=== PATIENT | female | born 1965 ===

== ENCOUNTER 2018-02-20 20:49 | Observation (INO) | payer MEDICARE, MEDICAID ==
--- NOTE | 2018-02-20 21:59 | ED PDOC ---
Arrival/HPI - General Chief Complaint: Abdominal Pain Time Seen by Provider: 02/20/18 21:05 Historian: Patient - History of Present Illness Narrative History of Present Illness (Text): 02/20/18 21:55 52 year old female, whose past medical history includes hypertension, diabetes, and CVA, presents to the emergency department complaining of onset of abdominal discomfort associated with nausea and vomiting that began earlier this evening. Patient states the discomfort radiates to the back. Patient denies any fever, chills, chest pain, shortness of breath, diarrhea, urinary symptoms, neck pain, headache, dizziness, or any other complaints. Time/Duration: 4-6 hours Symptom Onset: Sudden Symptom Course: Unchanged Activities at Onset: Light Context: Home Past Medical History - Provider Review Nursing Documentation Reviewed: Yes - Infectious Disease Hx of Infectious Diseases: None - Tetanus Immunization Tetanus Immunization: Unknown - Cardiac Hx Cardiac Disorders: Yes Hx Hypertension: Yes - Pulmonary Hx Respiratory Disorders: No - Neurological Hx Neurological Disorder: Yes HX Cerebrovascular Accident: Yes (x 4) Hx Transient Ischemic Attacks (TIA): Yes - HEENT Hx HEENT Disorder: No - Renal Hx Renal Disorder: No - Endocrine/Metabolic Hx Endocrine Disorders: Yes Hx Diabetes Mellitus Type 2: Yes (niddm) - Hematological/Oncological Hx Blood Disorders: No - Integumentary Hx Dermatological Disorder: No - Musculoskeletal/Rheumatological Hx Musculoskeletal Disorders: Yes Hx Arthritis: Yes - Gastrointestinal Hx Gastrointestinal Disorders: No - Genitourinary/Gynecological Hx Genitourinary Disorders: Yes Hx Incontinence: Yes (slight) - Psychiatric Hx Psychophysiologic Disorder: No Hx Substance Use: No - Surgical History Hx Section: Yes Hx Musculoskeletal Surgery: Yes (Right knee miniscal tear) Other/Comment: corn removed from right foot 2000 - Anesthesia Hx Anesthesia: Yes Hx Anesthesia Reactions: No Hx Malignant Hyperthermia: No - Suicidal Assessment Feels Threatened In Home Enviroment: No Family/Social History - Physician Review Nursing Documentation Reviewed: Yes Family/Social History: No Known Family HX Smoking Status: Light Smoker < 10 Cigarettes Daily Hx Alcohol Use: No Hx Substance Use: No Allergies/Home Meds Allergies/Adverse Reactions: Allergies Penicillins Allergy (Verified 02/20/18 21:41) ANAPHYLAXIS syncope Home Medications: Home Meds Medication Instructions Recorded Confirmed Enalapril [Vasotec] 10 mg PO BID 12/21/13 10/16/16 GlipiZIDE SR [Glucotrol XL] 2.5 mg PO DAILY 12/21/13 10/16/16 Atorvastatin [Lipitor] 0 mg PO DAILY 10/16/16 10/16/16 Carvedilol [Coreg] 1 tab PO BID 10/16/16 10/16/16 MetFORMIN [glucoPHAGE] 1,000 mg PO BID 10/16/16 10/16/16 traMADol [Ultram] 50 mg PO TID PRN 10/16/16 10/16/16 Review of Systems - Physician Review All systems were reviewed & negative as marked: Yes - Review of Systems Constitutional: absent: Fevers, Other (Chills) Respiratory: absent: SOB Cardiovascular: absent: Chest Pain Gastrointestinal: Abdominal Pain, Nausea, Vomiting. absent: Diarrhea Genitourinary Female: absent: Dysuria, Frequency, Hematuria Musculoskeletal: Back Pain. absent: Neck Pain Neurological: absent: Headache, Dizziness Physical Exam Vital Signs Reviewed: Yes Vital Signs Pulse Resp BP Pulse Ox 02/21/18 02:51 85 18 166/86 H 95 Appearance: Positive for: Well-Appearing, Non-Toxic, Comfortable Pain Distress: None Mental Status: Positive for: Alert and Oriented X 3 - Systems Exam Head: Present: Atraumatic, Normocephalic Pupils: Present: PERRL Extroacular Muscles: Present: EOMI Conjunctiva: Present: Normal Mouth: Present: Moist Mucous Membranes Neck: Present: Normal Range of Motion Respiratory/Chest: Present: Clear to Auscultation, Good Air Exchange. No: Respiratory Distress, Accessory Muscle Use Cardiovascular: Present: Regular Rate and Rhythm, Normal S1, S2. No: Murmurs Abdomen: Present: Tenderness (Palpable tenderness to the right upper abdomen), Normal Bowel Sounds. No: Distention, Peritoneal Signs Back: Present: Normal Inspection. No: CVA Tenderness Upper Extremity: Present: Normal Inspection. No: Cyanosis, Edema Lower Extremity: Present: Normal Inspection. No: Edema Neurological: Present: GCS=15, CN II-XII Intact, Speech Normal Skin: Present: Warm, Dry, Normal Color. No: Rashes Psychiatric: Present: Alert, Oriented x 3, Normal Insight, Normal Concentration Medical Decision Making ED Course and Treatment: 02/20/18 22:02 Impression: 52 year old female presents complaining of onset of abdominal discomfort radiating to the back associated with nausea and vomiting that began earlier this evening. Plan: -- Labs -- Pepcid, IV Fluids, Zofran Inj -- Urinalysis -- Abdomen Complete US -- CT Abdomen and Pelvis w/ IV Contrast -- Reassess and disposition Progress Notes: EXAM: US Abdomen Complete 02/21/2018 12:10 AM IMPRESSION: Cholelithiasis. No acute cholecystitis. Fatty liver. EXAM: CT Abdomen and Pelvis With Intravenous Contrast Dictated and Authenticated by: Charla Cotton MD 02/21/2018 1:57 AM IMPRESSION: Moderate right hydroureteronephrosis secondary to 4 mm stone in the proximal ureter. Cholelithiasis. 02/21/18 03:[address] Doherty who is aware and agrees with the plan. Accepts patient into his service and requests Dr. Mcwilliams and Dr. Alex under consults. - Lab Interpretations Lab Results: 02/20/18 22:20 02/20/18 22:20 Lab Results 02/20/18 22:20: WBC 15.0 H D, RBC 4.54, Hgb 12.8, Hct 38.4, MCV 84.6, MCH 28.2, MCHC 33.3, RDW 13.3, Plt Count 424, MPV 11.3 H 02/20/18 22:20: Sodium 145, Potassium 4.4, Chloride 105, Carbon Dioxide 24, Anion Gap 21 H, BUN 17, Creatinine 1.0, Est GFR ( Amer) > 60, Est GFR ( Non-Af Amer) 58, Random Glucose 238 H, Calcium 9.4, Total Bilirubin 0.2, AST 19 , ALT 35, Alkaline Phosphatase 90, Total Protein 7.2, Albumin 4.2, Globulin 3.0 , Albumin/Globulin Ratio 1.4, Lipase 54 I have reviewed the lab results: Yes - RAD Interpretation Radiology Orders: 02/20/18 22:33 ABDOMEN COMPLETE [US] Stat 02/21/18 00:23 ABD & PELVIS IV CONTRAST ONLY [CT] Stat - Medication Orders Current Medication Orders: Sodium Chloride (Sodium Chloride 0.9%) 1,000 mls @ 100 mls/hr IV .Q10H BROCK Last Admin: 02/20/18 22:14 Dose: 100 mls/hr eMAR Start Stop Document 02/20/18 22:14 SS (Rec: 02/20/18 22:14 SS [id number]) Intravenous Solution Start Date 02/20/18 Start Time 22:14 Aztreonam (Azactam 1 Gm) 100 mls @ 100 mls/hr IVPB STAT STA PRN Reason: Protocol Stop: 02/21/18 04:12 Discontinued Medications Famotidine (Pepcid) 20 mg IVP STAT STA Stop: 02/20/18 21:50 Last Admin: 02/20/18 22:14 Dose: 20 mg IVP Administration Document 02/20/18 22:14 SS (Rec: 02/20/18 22:14 SS [id number]) Charges for Administration # of IVP Administrations 1 Morphine Sulfate (Morphine) 4 mg IVP STAT STA Stop: 02/21/18 00:24 Last Admin: 02/21/18 00:52 Dose: 4 mg MAR Pain Assessment Document 02/21/18 00:52 (Rec: 02/21/18 00:53 RG [id number]) Pain Reassessment Is this a pain reassessment? Yes Presence of Pain Presence of Pain Yes Pain Scale Used Pain Scale Used Numeric Location Left, Right or Bilateral Right Upper or Lower Lower Pain Location Body Site Back Description Description Intermittent Intensity of Pain at present 6 Pain Behavior Irritability IVP Administration Document 02/21/18 00:52 RG (Rec: 02/21/18 00:53 RG [id number]) Charges for Administration # of IVP Administrations 1 Ondansetron HCl (Zofran Inj) 4 mg IVP ONCE ONE Stop: 02/20/18 21:50 Last Admin: 02/20/18 22:14 Dose: 4 mg IVP Administration Document 02/20/18 22:14 SS (Rec: 02/20/18 22:14 SS [id number]) Charges for Administration # of IVP Administrations 1 - Scribe Statement The provider has reviewed the documentation as recorded by the Serene Cervantes Provider Scribe Attestation: All medical record entries made by the Scribe were at my direction and personally dictated by me. I have reviewed the chart and agree that the record accurately reflects my personal performance of the history, physical exam, medical decision making, and the department course for this patient. I have also personally directed, reviewed, and agree with the discharge instructions and disposition. Disposition/Present on Arrival - Present on Arrival Any Indicators Present on Arrival: No History of DVT/PE: No History of Uncontrolled Diabetes: No Urinary Catheter: No History of Decub. Ulcer: No History Surgical Site Infection Following: None - Disposition Have Diagnosis and Disposition been Completed?: Yes Diagnosis: Renal colic Disposition: HOSPITALIZED Disposition Time: 03:11 Patient Problems: Current Active Problems Problem Status Onset Renal colic Acute Condition: STABLE
[2018-02-20] MEDS ORDERED: Sodium Chloride 0.9% 1,000 ML IV SCH (22:00)
[2018-02-20 22:03] VITALS: BMI 29.4
[2018-02-20 22:38] LABS: HEMOGLOBIN 12.8 g/dL (12.0-16.0); MEAN CELL VOLUME 84.6 fl (80.0-105.0); MEAN CORPUSCULAR HEMOGLOBIN 28.2 pg (25.0-35.0); MEAN CORPUSCULAR HGB CONC 33.3 g/dl (31.0-37.0); MEAN PLATELET VOLUME 11.3 fl (7.0-11.0); RBC 4.54 10^6/uL (3.5-6.1); RED CELL DISTRIBUTION WIDTH 13.3 % (11.5-14.5)
[2018-02-20 22:46] LABS: ALB/GLOB RATIO 1.4 (1.1-1.8); ALBUMIN 4.2 g/dL (3.0-4.8); ALT/SGPT 35 U/L (7-56); AST/SGOT 19 U/L (14-36); BLOOD UREA NITROGEN 17 mg/dL (7-21); CALCIUM 9.4 mg/dL (8.4-10.5); GFR AFRICAN-AMERICAN > 60; GFR NON-AFRICAN AMERICAN 58; LIPASE 54 U/L (23-300)
--- NOTE | 2018-02-21 00:10 | US ---
EXAM: US Abdomen Complete CLINICAL HISTORY: 52 years old, female; Pain; Abdominal pain; Other: Ruq TECHNIQUE: Real-time ultrasound of the abdomen (complete) with image documentation. COMPARISON: No relevant prior studies available. FINDINGS: Liver: The liver is increased in echogenicity and coarse echotexture suggesting fatty infiltration measuring 18.8 cm. No mass. No intrahepatic bile duct dilation. Gallbladder: Multiple calcified gallstones are present. Gallbladder wall is normal measuring 2 mm. Negative Mathur's sign. No pericholecystic fluid. Common bile duct: Unremarkable as visualized measuring 5 mm. No stones. No dilation. Pancreas: The pancreas is poorly-visualized due to overlying bowel gas. Kidneys: Unremarkable. The right kidney measures 12.4 cm and the left kidney measures 11.2 cm. No stones. No solid mass. No hydronephrosis. Spleen: Unremarkable measuring 9.4 cm. No splenomegaly. Aorta: Unremarkable. No aneurysm. Inferior vena cava: Unremarkable. Hepatopedal flow in the portal vein. IMPRESSION: Cholelithiasis. No acute cholecystitis. Fatty liver.
[2018-02-21] MEDS ORDERED: Morphine 4 mg/ml ISec IVP STA ×2 (00:23→05:08)
[2018-02-21] MEDS ORDERED: Iohexol 350 MG/100 ML VIAL ONE (00:35)
--- NOTE | 2018-02-21 01:57 | CT ---
EXAM: CT Abdomen and Pelvis With Intravenous Contrast CLINICAL HISTORY: 52 years old, female; Pain; Abdominal pain TECHNIQUE: Axial computed tomography images of the abdomen and pelvis with intravenous contrast. All CT scans at this facility use one or more dose reduction techniques, viz.: automated exposure control; ma/kV adjustment per patient size (including targeted exams where dose is matched to indication; i.e. head); or iterative reconstruction technique. Coronal and sagittal reformatted images were created and reviewed. CONTRAST: 96 mL of OMNI 350 administered intravenously. COMPARISON: US - ABDOMEN COMPLETE 2018-02-20 23:06 FINDINGS: Lung bases: Unremarkable. No mass. No consolidation. ABDOMEN: Liver: Unremarkable. No mass. Gallbladder and bile ducts: Multiple calcified gallstones are present. No ductal dilation. Pancreas: Unremarkable. No mass. No ductal dilation. Spleen: Unremarkable. No splenomegaly. Adrenals: Unremarkable. No mass. Kidneys and ureters: There is moderate right hydronephrosis and hydroureter secondary to a 4 mm stone in the proximal ureter. Right perinephric inflammatory stranding and fluid. There are multiple bilateral renal collecting system calcifications. Stomach and bowel: Unremarkable. No obstruction. No mucosal thickening. PELVIS: Appendix: A normal appendix is identified. Bladder: Unremarkable. No mass. Reproductive: Unremarkable as visualized. ABDOMEN and PELVIS: Intraperitoneal space: Unremarkable. No free air. No significant fluid collection. Bones/joints: No acute fracture. No dislocation. Soft tissues: Unremarkable. Vasculature: The vasculature demonstrates diffuse moderate atherosclerotic calcification. No abdominal aortic aneurysm. Lymph nodes: Unremarkable. No enlarged lymph nodes. IMPRESSION: Moderate right hydroureteronephrosis secondary to 4 mm stone in the proximal ureter. Cholelithiasis.
[2018-02-21] MEDS ORDERED: Aztreonam 1 Gm in NS 100mL 100 ML IVPB STA (03:13)
[2018-02-21 04:31] LABS: URINE BILIRUBIN NEGATIVE (NEGATIVE); URINE BLOOD MODERATE (NEGATIVE); URINE GLUCOSE (UA) 250 mg/dL (NEGATIVE); URINE LEUKOCYTE ESTERASE NEGATIVE Leu/uL (NEGATIVE); URINE PROTEIN 30 mg/dL (<30 mg/dL); URINE UROBILINOGEN 0.2 E.U./dL (<1 E.U./dL)
[2018-02-21 04:33] LABS: URINE APPEARANCE CLEAR (CLEAR)
[2018-02-21 04:34] LABS: URINE COLOR YELLOW (YELLOW)
[2018-02-21 04:53] LABS: URINE WBC 0 - 2 /hpf (0-6)
[2018-02-21] MEDS ORDERED: Sodium Chloride 0.9% 1,000 ML IV STA (05:11)
[2018-02-21] MEDS ORDERED: Morphine 30 mg SR Tab PO PRN (07:43)
--- NOTE | 2018-02-21 07:44 | CP.PCM.HP ---
<Rosalinda Strauss - Last Filed: 02/21/18 11:16> History of Present Illness - History of Present Illness History of Present Illness: H&P for Martine Hagen PGY2 This is a 52yo female with past medical history HTN, IDDM, and TIA who came to ED for diffuse abdominal pain that radiates to her back x 2 days. She states that it began all of a sudden, the pain is constant and she has never had this before. She has some nausea, but denies chest pain, shortness of breath, vomiting/diarrhea, fever/chills, numbness/tingling, dysuria or hematuria. In the ED, patient was found to have leukocytosis and a 4mm R kidney stone with hydronephrosis on CT A/P. Past medical history: HTN, DM, TIA Past surgical history: Home meds: Reviewed Allergies: Penicillin Social history: Smokes 1/2ppd, denies EtOH or drug use. Uses cane to ambulate Present on Admission - Present on Admission Any Indicators Present on Admission: No Review of Systems - Review of Systems All systems: reviewed and no additional remarkable complaints except Review of Systems: 12 point ROS reviewed as per HPI Past Patient History - Infectious Disease Hx of Infectious Diseases: None - Tetanus Immunizations Tetanus Immunization: Unknown - Past Medical History & Family History Past Medical History?: Yes - Past Social History Smoking Status: Light Smoker < 10 Cigarettes Daily - CARDIAC Hx Cardiac Disorders: Yes Hx Hypertension: Yes - PULMONARY Hx Respiratory Disorders: No - NEUROLOGICAL Hx Neurological Disorder: Yes HX Cerebrovascular Accident: Yes (x 4) Hx Transient Ischemic Attacks (TIA): Yes - HEENT Hx HEENT Problems: No - RENAL Hx Chronic Kidney Disease: No - ENDOCRINE/METABOLIC Hx Endocrine Disorders: Yes Hx Diabetes Mellitus Type 2: Yes (niddm) - HEMATOLOGICAL/ONCOLOGICAL Hx Blood Disorders: No - INTEGUMENTARY Hx Dermatological Problems: No - MUSCULOSKELETAL/RHEUMATOLOGICAL Hx Musculoskeletal Disorders: Yes Hx Arthritis: Yes - GASTROINTESTINAL Hx Gastrointestinal Disorders: No - GENITOURINARY/GYNECOLOGICAL Hx Genitourinary Disorders: Yes Hx Incontinence: Yes (slight) - PSYCHIATRIC Hx Psychophysiologic Disorder: No Hx Substance Use: No - SURGICAL HISTORY Hx Section: Yes Hx Musculoskeletal Surgery: Yes (Right knee miniscal tear) Other/Comment: corn removed from right foot 2000 - ANESTHESIA Hx Anesthesia: Yes Hx Anesthesia Reactions: No Hx Malignant Hyperthermia: No Meds Allergies/Adverse Reactions: Allergies Allergy/AdvReac Type Severity Reaction Status Date / Time Penicillins Allergy ANAPHYLAXIS Verified 02/20/18 21:41 Physical Exam - Constitutional Appears: No Acute Distress - Head Exam Head Exam: ATRAUMATIC, NORMAL INSPECTION, NORMOCEPHALIC - Eye Exam Eye Exam: Normal appearance, PERRL Pupil Exam: NORMAL ACCOMODATION, PERRL - ENT Exam ENT Exam: Mucous Membranes Moist - Respiratory Exam Respiratory Exam: Clear to Auscultation Bilateral, NORMAL BREATHING PATTERN. absent: Rales, Rhonchi, Wheezes - Cardiovascular Exam Cardiovascular Exam: REGULAR RHYTHM, +S1, +S2. absent: Gallop, Rubs, Systolic Murmur - GI/Abdominal Exam GI & Abdominal Exam: Normal Bowel Sounds, Soft, Tenderness (mild diffuse ). absent: Mass, Rebound, Rigid - Extremities Exam Extremities exam: Positive for: normal inspection. Negative for: calf tenderness, pedal edema - Back Exam Back exam: CVA tenderness (R) - Neurological Exam Neurological exam: Alert, CN II-XII Intact, Oriented x3 - Psychiatric Exam Psychiatric exam: Normal Affect, Normal Mood - Skin Skin Exam: Dry, Warm Results - Vital Signs Recent Vital Signs: Last Vital Signs Temp 98.5 F 02/21/18 04:50 Pulse 88 02/21/18 07:24 Resp 18 02/21/18 05:11 BP 170/78 H 02/21/18 07:24 Pulse Ox 98 02/21/18 05:11 - Labs Result Diagrams: 02/21/18 07:45 02/20/18 22:20 Labs: Laboratory Results - last 24 hr 02/21/18 05:10 POC Glucose (mg/dL) 209 H Assessment & Plan - Assessment and Plan (Free Text) Assessment: This is a 52yo female with past medical history HTN, IDDM, and TIA who is admitted for 1. Nephrolithiasis with R hydronephrosis 2. HTN 3. IDDM 4. TIA 5. Tobacco abuse Plan: Patient is on IV fluids, Flomax and pain control. U/A was negative for UTI. ID is on consult. Patient has mild leukocytosis and is afebrile. Imaging reviewed. Urology is on consult. Patient may need stent due to hydronephrosis. She will be on Gipizide and insulin for her diabetes and will continue to monitor her blood glucose. She will continue her home medications (Coreg and Enalipril) for hypertension. Her BP was noted to be elevated, but can be secondary to pain and IV fluids. She will continue ASA for history of TIA. Patient was counseled on smoking cessation and discussed the risk of tobacco use and stroke. Patient will be on GI and DVT prophylaxis. Discharge plan will be based on urology recommendation and patient's pain control. Urine will be strained. Case seen, discussed and reviewed with Dr. Doherty. Martine Strauss PGY2 - Date & Time Date: 02/21/18 Time: 08:00 <Glen Doherty S - Last Filed: 02/21/18 13:04> Results - Vital Signs Recent Vital Signs: Last Vital Signs Temp 98.2 F 02/21/18 06:00 Pulse 88 02/21/18 10:41 Resp 16 02/21/18 10:41 BP 170/78 H 02/21/18 10:41 Pulse Ox 96 02/21/18 06:00 - Labs Result Diagrams: 02/21/18 07:45 02/20/18 22:20 Labs: Laboratory Results - last 24 hr 02/21/18 02/21/18 02/21/18 05:10 06:49 07:45 WBC 14.2 H RBC 4.63 Hgb 13.0 Hct 38.6 MCV 83.4 MCH 28.1 MCHC 33.7 RDW 13.2 Plt Count 383 MPV 10.7 POC Glucose (mg/dL) 209 H 211 H 02/21/18 11:07 WBC RBC Hgb Hct MCV MCH MCHC RDW Plt Count MPV POC Glucose (mg/dL) 219 H Assessment & Plan - Assessment and Plan (Free Text) Plan: Pt seen and examined. Agree with the note of the medical unit secretary. Labs and medications have been reviewed. Pt with R nephrotlithiasis and hydro. She is on Flomax. Pain is controlled. She does have a hx of kidney stones. May need a stent to be placed.
[2018-02-21 08:06] LABS: MEAN CELL VOLUME 83.4 fl (80.0-105.0); MEAN CORPUSCULAR HEMOGLOBIN 28.1 pg (25.0-35.0); MEAN CORPUSCULAR HGB CONC 33.7 g/dl (31.0-37.0); MEAN PLATELET VOLUME 10.7 fl (7.0-11.0); RBC 4.63 10^6/uL (3.5-6.1); RED CELL DISTRIBUTION WIDTH 13.2 % (11.5-14.5); WHITE BLOOD COUNT 14.2 10^3/ul (4.5-11.0)
[2018-02-21] MEDS: GlipiZIDE 2.5 mg SR Tab PO SCH (10:30)
[2018-02-21] MEDS ORDERED: Morphine 4 mg/ml ISec IVP PRN (10:32)
[2018-02-21] MEDS: Insulin Reg-LOW-Coverage SC SCH ×2 (11:30→17:58)
[2018-02-21] MEDS: Aztreonam 1 Gm in NS 100mL 100 ML IVPB SCH ×2 (14:00→22:58)
--- NOTE | 2018-02-21 14:53 | CP.PCM.CON ---
History of Present Illness - History of Present Illness History of Present Illness: 52 year old female with PMH of HTN, DM, history of TIA, S/P came in to [facility] complaining of abdominal pain associated with right sided flank pain which is intermittent for the past 2 days, associated with nausea. She denies vomiting, no diarrhea, no dysuria, no hematuria, no dysphagia, no fever or chills, no headache or dizziness, no sore throat, no cough or colds. In the ED, CT scan of the abdomen and pelvis was done which showed right sided hydronephrosis with obstructing stone. Infectious diseases consult is requested to further evaluate and manage. Review of Systems - Review of Systems All systems: reviewed and no additional remarkable complaints except (as per HPI ) Past Patient History - Infectious Disease Hx of Infectious Diseases: None - Tetanus Immunizations Tetanus Immunization: Unknown - Past Medical History & Family History Past Medical History?: Yes - Past Social History Smoking Status: Light Smoker < 10 Cigarettes Daily - CARDIAC Hx Cardiac Disorders: Yes Hx Hypertension: Yes - PULMONARY Hx Respiratory Disorders: No - NEUROLOGICAL Hx Neurological Disorder: Yes HX Cerebrovascular Accident: Yes (x 4) Hx Transient Ischemic Attacks (TIA): Yes - HEENT Hx HEENT Problems: No - RENAL Hx Chronic Kidney Disease: No - ENDOCRINE/METABOLIC Hx Endocrine Disorders: Yes Hx Diabetes Mellitus Type 2: Yes (niddm) - HEMATOLOGICAL/ONCOLOGICAL Hx Blood Disorders: No - INTEGUMENTARY Hx Dermatological Problems: No - MUSCULOSKELETAL/RHEUMATOLOGICAL Hx Musculoskeletal Disorders: Yes Hx Arthritis: Yes - GASTROINTESTINAL Hx Gastrointestinal Disorders: No - GENITOURINARY/GYNECOLOGICAL Hx Genitourinary Disorders: Yes Hx Incontinence: Yes (slight) - PSYCHIATRIC Hx Psychophysiologic Disorder: No Hx Substance Use: No - SURGICAL HISTORY Hx Section: Yes Hx Musculoskeletal Surgery: Yes (Right knee miniscal tear) Other/Comment: corn removed from right foot 2000 - ANESTHESIA Hx Anesthesia: Yes Hx Anesthesia Reactions: No Hx Malignant Hyperthermia: No Meds Allergies/Adverse Reactions: Allergies Allergy/AdvReac Type Severity Reaction Status Date / Time Penicillins Allergy ANAPHYLAXIS Verified 02/20/18 21:41 - Medications Medications: Current Medications Aspirin (Ecotrin) 81 mg PO DAILY [facility] Last Admin: 02/21/18 10:30 Dose: 81 mg Atorvastatin Calcium (Lipitor) 10 mg PO DAILY [facility] Last Admin: 02/21/18 10:30 Dose: 10 mg Carvedilol (Coreg) 6.25 mg PO BID [facility] Last Admin: 02/21/18 10:30 Dose: Not Given Glipizide (Glucotrol Xl) 2.5 mg PO DAILY [facility] Last Admin: 02/21/18 10:30 Dose: 2.5 mg Sodium Chloride (Sodium Chloride 0.9%) 1,000 mls @ 100 mls/hr IV .Q10H [facility] Last Admin: 02/20/18 22:14 Dose: 100 mls/hr Sodium Chloride (Sodium Chloride 0.9%) 1,000 mls @ 100 mls/hr IV .Q10H STA Stop: 02/21/18 15:10 Aztreonam (Azactam 1 Gm) 100 mls @ 100 mls/hr IVPB Q8 [facility] PRN Reason: Protocol Stop: 02/28/18 14:01 Insulin Human Lispro (Humalog) 10 units SC ACBD [facility] Insulin Human Regular (Humulin R Low) 0 units SC ACHS [facility] PRN Reason: Protocol Lisinopril (Zestril) 20 mg PO DAILY [facility] Last Admin: 02/21/18 10:31 Dose: Not Given Morphine Sulfate (Morphine) 4 mg IVP Q4H PRN PRN Reason: Pain, moderate (4-7) Ondansetron HCl (Zofran Inj) 4 mg IVP Q6H PRN PRN Reason: Nausea/Vomiting Tamsulosin HCl (Flomax) 0.4 mg PO DAILY [facility] Last Admin: 02/21/18 10:30 Dose: 0.4 mg Physical Exam - Constitutional Appears: Non-toxic, Chronically Ill - Head Exam Head Exam: NORMAL INSPECTION - ENT Exam ENT Exam: Mucous Membranes Moist - Neck Exam Neck exam: Negative for: Lymphadenopathy, Meningismus - Respiratory Exam Respiratory Exam: Decreased Breath Sounds - Cardiovascular Exam Cardiovascular Exam: +S1, +S2 - GI/Abdominal Exam GI & Abdominal Exam: Soft. absent: Tenderness - Back Exam Back exam: CVA tenderness (R) Results - Vital Signs Recent Vital Signs: Last Vital Signs Temp 98.2 F 02/21/18 06:00 Pulse 88 02/21/18 10:41 Resp 16 02/21/18 10:41 BP 170/78 H 02/21/18 10:41 Pulse Ox 96 02/21/18 06:00 - Labs Result Diagrams: 02/21/18 07:45 05/17/18 22:20 Labs: Laboratory Results - last 24 hr 02/21/18 02/21/18 02/21/18 05:10 06:49 07:45 WBC 14.2 H RBC 4.63 Hgb 13.0 Hct 38.6 MCV 83.4 MCH 28.1 MCHC 33.7 RDW 13.2 Plt Count 383 MPV 10.7 POC Glucose (mg/dL) 209 H 211 H 02/21/18 11:07 WBC RBC Hgb Hct MCV MCH MCHC RDW Plt Count MPV POC Glucose (mg/dL) 219 H Assessment & Plan - Assessment and Plan (Free Text) Plan: Assessment systemic inflammatory response syndrome due to right sided obstructive uropathy R/O UTI HTN DM history of TIA S/P Plan Started the patient on Azactam pending blood and urine cx; follow up Urology evaluation and plans will check HIV test will monitor clinically
[2018-02-21] MEDS ORDERED: Iohexol 240 (50 ml) ONE (15:19)
--- NOTE | 2018-02-21 15:32 | RAD ---
HISTORY: preop COMPARISON: 04/12/2014 FINDINGS: LUNGS: No active pulmonary disease. PLEURA: No significant pleural effusion identified, no pneumothorax apparent. CARDIOVASCULAR: Normal. OSSEOUS STRUCTURES: No significant abnormalities. VISUALIZED UPPER ABDOMEN: Normal. OTHER FINDINGS: None. IMPRESSION: No active disease.
[2018-02-21] MEDS ORDERED: Midazolam 2 MG/2 ML VIAL ONE (15:34)
[2018-02-21] MEDS ORDERED: HYDROmorphone 0.5 mg/0.5 ml ISec IVP PRN (16:12)
[2018-02-21] MEDS ORDERED: Lactated Ringer's 1,000 ML IV SCH (16:15)
--- NOTE | 2018-02-21 16:55 | CARD ---
APPROVED REPORT EKG Measurement Heart [id number] <Conclusion> Normal sinus rhythm Normal ECG
[2018-02-21] MEDS: Insulin Lispro 1 UNITS/0.01 ML SC SCH (17:59)
[2018-02-22] MEDS: Aztreonam 1 Gm in NS 100mL 100 ML IVPB SCH (06:21)
[2018-02-22 07:58] VITALS: BP 153/78; PULSE 75; RESP 19; TEMP 98.2; O2SAT 99
[2018-02-22] MEDS: GlipiZIDE 2.5 mg SR Tab PO SCH (10:53)
[2018-02-22] MEDS: Insulin Lispro 1 UNITS/0.01 ML SC SCH (10:54)
[2018-02-22] MEDS: Insulin Reg-LOW-Coverage SC SCH (10:56)
--- NOTE | 2018-02-22 11:44 | PN ---
DATE: 02/22/2018 POSTOPERATIVE PROGRESS NOTE SUBJECTIVE: The patient is seen in her room. She is awake, alert, in no acute distress. She is afebrile. PHYSICAL EXAMINATION: VITAL SIGNS: Temp of 98.2, pulse 75, BP 153/78, respirations are 20. ABDOMEN: Soft, nontender and nondistended. There is no hepatosplenomegaly or CVA tenderness. IMPRESSION AND PLAN: The patient is status post ureteral stent placement for a ureteral calculus. Urologically, the patient appears stable for discharge. I would discharge her home on analgesics and antibiotics. She should contact my office next week for further plans regarding stent and stone removal. Saad Alex MD
--- NOTE | 2018-02-22 12:40 | PN ---
DATE: 02/22/2018 SUBJECTIVE: The patient is in bed in no acute distress, nontoxic. PHYSICAL EXAMINATION: VITAL SIGNS: Temperature is 98, blood pressure is 130/78, respiratory rate of 18. HEENT: Unremarkable. NECK: Supple. LUNGS: Have decreased breath sounds. HEART: Normal S1, S2. ABDOMEN: Soft, nontender. LABORATORY DATA: Reveals a white count of 14,200, hemoglobin of 13, platelets of 383. Chemistries reveals a BUN of 17, creatinine of 1. Urinalysis is noted. Blood cultures are negative. Urine cultures are pending. ASSESSMENT AND PLAN: Surgical note is reviewed. Case discussed with Dr. Doherty at length. Ken Mcwilliams MD
--- NOTE | 2018-02-22 20:37 | DS ---
HISTORY: This is a 52-year-old female who had came into the hospital because of renal colic secondary to kidney stones. The patient was seen by Dr. Alex from Urology and had a stent that was placed in the right ureter and also a cystoscopy was done. The patient says she feels well. She is ambulating. She has no complaint of any chest pain or shortness of breath. No headaches. Pain is controlled. PHYSICAL EXAMINATION: VITAL SIGNS: Temperature is 98.2, pulse of 75, blood pressure 153/78, respirations 19. GENERAL: The patient is lying in bed, flat, comfortable. HEENT: No oral lesion. Anicteric sclerae. Moist mucosa. NECK: No JVD, adenopathy, or thyromegaly. CARDIOVASCULAR: S1 and S2, regular. No murmurs, rubs, or gallops. LUNGS: Clear to auscultation bilaterally. No wheeze, rales, or rhonchi. ABDOMEN: Bowel sounds are positive, soft, nontender and nondistended. EXTREMITIES: no cyanosis, clubbing or edema. ASSESSMENT 1. Nephrolithiasis with right-sided kidney stone, status post stent. 2. Right-sided hydronephrosis secondary to nephrolithiasis. 3. Hypertension. 4. Diabetes type 2. 5. History of transient ischemic attack. 6. Smoking. PLAN: The patient is currently comfortable. She does not require antibiotics. I did speak to Dr. Mcwilliams regarding the case. She has been cleared by Dr. Alex from Urology to be discharged. She is going to continue aspirin. She is on Flomax. The patient is on Lipitor for dyslipidemia. She is on IV fluids. I will discontinue the patient's IV fluids. She was advised to be on low-salt diet and increasing fluid intake. She is going to follow with Dr. Alex for removal of her stent. I did advise her the importance of followup. Glen Doherty MD
--- NOTE | 2018-02-24 08:11 | OP ---
PROCEDURE DATE: 02/21/2018 PREOPERATIVE DIAGNOSIS: Obstructing right ureteral calculus. POSTOPERATIVE DIAGNOSIS: Obstructing right ureteral calculus. PROCEDURE: Cystoscopy, right retrograde pyelogram, insertion of a right ureteral stent. ATTENDING SURGEON: Saad Alex MD TYPE OF ANESTHESIA: Sedation. SPECIMENS There were none. DRAINS: 6 x 26 right ureteral stent. COMPLICATIONS: There were none. OPERATIVE FINDINGS: After informed consent was obtained, the patient was taken to the operative room and placed on the operating table. Anesthesia was administered. The patient was then placed in the dorsal lithotomy position and prepped and draped in the usual sterile fashion. A 22-Malay cystoscope was then advanced into the patient's bladder under direct vision and a full survey inspection was performed. There were no stones, papillary tumors or foreign bodies of the bladder noted. Both ureteral orifices were visualized and appeared within normal limits. On fluoroscopy, no obvious calculus was noted. At this point, an open-ended ureteral catheter was introduced through the cystoscope and guided into the right ureteral orifice. A right retrograde pyelogram was then performed by filling contrast into the right ureter during real-time fluoroscopy. There appeared to be a small mobile filling defect in the right renal pelvis or upper ureter. There was some dilatation above this point with mild right hydronephrosis. At this point, a sensor wire was obtained. The sensor wire was passed through the open-ended ureteral catheter and advanced up the ureter under fluoroscopic guidance. The wire was easily advanced into the kidney and coiled in the upper collecting system. At this point, a 6 x 26 ureteral stent was obtained. It was passed over the wire through the cystoscope and into the right ureter. The stent was advanced proximally under direct and fluoroscopic guidance until it was at the appropriate position. When the stent was in place, guidewire was removed. A coil was seen in renal pelvis on fluoroscopy. A coil was seen in bladder on cystoscopy. At this point, the procedure was completed. The bladder was drained and the cystoscope was removed. The patient tolerated the procedure well. She was returned to the supine position and taken to the recovery room awake and in stable condition. The patient has diabetes with an obstructive stone, which is why the stent was passed. Plan would be to continue intravenous antibiotics. See how the patient is doing tomorrow and if her pain is controlled with no fever, she can be discharged on antibiotics from a urologic standpoint. The patient has multiple medical comorbidities. She will need to follow up in my office as an outpatient and plan on further treatment of her stone. Saad Alex MD
--- NOTE | 2018-02-24 12:27 | RAD ---
PROCEDURE: Fluoroscopy up to 1 hour HISTORY: RETROGRADE PYELOGRAM / STENT INSERTION (RIGHT) COMPARISON: TECHNIQUE: Fluoroscopy was provided in the operating room. 30.2 seconds of fluoro time. 13.57 mGy cumulative dose. 10 images were submitted FINDINGS: The study shows placement of a right ureteral stent IMPRESSION: As above
== END 2018-02-22 14:06 | disposition home or self-care (01) ==
LOC: ED 20:49 → ERH 02-21 03:10 → 5RSO 02-21 06:38
PROVIDERS: ADMIT Internal Medicine Nephrology; ATTEND Internal Medicine Nephrology
DX: N13.2 Hydronephrosis with renal and ureteral calculous obstruction (principal); D72.829 Elevated white blood cell count, unspecified; E11.9 Type 2 diabetes mellitus without complications; I10 Essential (primary) hypertension; K76.0 Fatty (change of) liver, not elsewhere classified; K80.20 Calculus of gallbladder without cholecystitis without obstruction; R65.10 Systemic inflammatory response syndrome (SIRS) of non-infectious origin without acute organ dysfunction; Z79.4 Long term (current) use of insulin; Z86.73 Personal history of transient ischemic attack (TIA), and cerebral infarction without residual deficits; F17.210 Nicotine dependence, cigarettes, uncomplicated; Z88.0 Allergy status to penicillin; Z87.892 Personal history of anaphylaxis; B96.20 Unspecified Escherichia coli [E. coli] as the cause of diseases classified elsewhere
CPT/HCPCS: 52332; 71045; 74177; 76700; 80053; 81001; 82948; 83690; 85027; 87040; 87086; 87181; 87389; 93005; 96374; 96375; 96376; 99285; C1758; C1769; C2625; G0378; J2250; J2270; J2405; J3010; J7040; J7120; Q9966; Q9967

== ENCOUNTER 2018-02-23 10:12 | Emergency (ER) | payer MEDICARE, MEDICAID ==
[2018-02-23] MEDS ORDERED: Morphine 4 mg/ml ISec IVP STA (10:47)
[2018-02-23 11:11] VITALS: RESP 18; TEMP 98.2; O2SAT 97
--- NOTE | 2018-02-23 11:26 | ED PDOC ---
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 Alex for chronic nephrolithiasis on 02/21/18 and discharged yesterday, presents to the Emergency department complaining of right sided flank discomfort since today. Patient initially informs improvement and pain free after stent placement however pain soon reappeared today. Patient informs associated nausea and vomiting but denies any difficulty ambulating. Patient denies any fever, chills, diarrhea, chest pain, shortness of breath or any other complaints. Time/Duration: 4-6 hours Symptom Onset: Gradual Symptom Course: Unchanged Quality: Aching Activities at Onset: Light Context: Home Past Medical History - Provider Review Nursing Documentation Reviewed: Yes - Infectious Disease Hx of Infectious Diseases: None - Tetanus Immunization Tetanus Immunization: Unknown - Reproductive Menopause: Yes - Cardiac Hx Cardiac Disorders: Yes Hx Hypertension: Yes - Pulmonary Hx Respiratory Disorders: No - Neurological Hx Neurological Disorder: Yes HX Cerebrovascular Accident: Yes (x 4) Hx Transient Ischemic Attacks (TIA): Yes - HEENT Hx HEENT Disorder: No - Renal Hx Renal Disorder: No - Endocrine/Metabolic Hx Endocrine Disorders: Yes Hx Diabetes Mellitus Type 2: Yes (niddm) - Hematological/Oncological Hx Blood Disorders: No - Integumentary Hx Dermatological Disorder: No - Musculoskeletal/Rheumatological Hx Musculoskeletal Disorders: Yes Hx Arthritis: Yes - Gastrointestinal Hx Gastrointestinal Disorders: No - Genitourinary/Gynecological Hx Genitourinary Disorders: Yes Hx Incontinence: Yes (slight) - Psychiatric Hx Psychophysiologic Disorder: No Hx Substance Use: No - Surgical History Hx Section: Yes Hx Musculoskeletal Surgery: Yes (Right knee miniscal tear) Other/Comment: corn removed from right foot 2000 - Anesthesia Hx Anesthesia: Yes Hx Anesthesia Reactions: No Hx Malignant Hyperthermia: No - Suicidal Assessment Feels Threatened In Home Enviroment: No Family/Social History - Physician Review Nursing Documentation Reviewed: Yes Family/Social History: No Known Family HX Smoking Status: Light Smoker < 10 Cigarettes Daily Hx Alcohol Use: No Hx Substance Use: No Allergies/Home Meds Allergies/Adverse Reactions: Allergies Penicillins Allergy (Verified 02/20/18 21:41) ANAPHYLAXIS syncope Home Medications: Home Meds Medication Instructions Recorded Confirmed Enalapril [Vasotec] 10 mg PO BID 12/21/13 02/21/18 GlipiZIDE SR [Glucotrol XL] 2.5 mg PO DAILY 12/21/13 02/21/18 Atorvastatin [Lipitor] 0 mg PO DAILY 10/16/16 02/21/18 Carvedilol [Coreg] 1 tab PO BID 10/16/16 02/21/18 Review of Systems - Physician Review All systems were reviewed & negative as marked: Yes - Review of Systems Constitutional: Normal. absent: Fevers Eyes: Normal ENT: Normal Respiratory: Normal. absent: SOB Cardiovascular: Normal. absent: Chest Pain Gastrointestinal: Nausea, Vomiting. absent: Diarrhea Genitourinary Female: Normal Musculoskeletal: Back Pain (right flank discomfort) Skin: Normal Neurological: Normal Endocrine: Normal Hemo/Lymphatic: Normal Psychiatric: Normal Physical Exam Vital Signs Reviewed: Yes Vital Signs Temp Pulse Resp BP Pulse Ox 02/23/18 10:13 98.2 F 84 18 161/83 H 97 Temperature: Afebrile Blood Pressure: Hypertensive Pulse: Regular Respiratory Rate: Normal Appearance: Positive for: Well-Appearing, Non-Toxic, Comfortable Pain Distress: None Mental Status: Positive for: Alert and Oriented X 3 - Systems Exam Head: Present: Atraumatic, Normocephalic Pupils: Present: PERRL Extroacular Muscles: Present: EOMI Conjunctiva: Present: Normal Respiratory/Chest: Present: Clear to Auscultation, Good Air Exchange. No: Respiratory Distress, Accessory Muscle Use Cardiovascular: Present: Regular Rate and Rhythm, Normal S1, S2. No: Murmurs Abdomen: No: Tenderness, Distention, Peritoneal Signs Back: Present: CVA Tenderness, Other (right flank tenderness) Upper Extremity: Present: Normal Inspection. No: Cyanosis, Edema Lower Extremity: Present: Normal Inspection. No: Edema Neurological: Present: GCS=15, CN II-XII Intact, Speech Normal Skin: Present: Warm, Dry, Normal Color. No: Rashes Psychiatric: Present: Alert, Oriented x 3, Normal Insight, Normal Concentration Medical Decision Making ED Course and Treatment: 02/23/18 10:45 Impression: 52 year old female presents to the Emergency department for right sided flank discomfort s/p ureteral discomfort. Plan: -- VBG -- CT of Abdomen/Pelvis -- Labs -- EKG -- Chest X-ray -- Morphine -- IV Fluids -- Blood Culture -- Urine Culture -- Urinalysis -- Reassess and disposition Prior Visits: Notes and results from previous visits were reviewed. Patient was last seen in the emergency department on 02/20/18 for right sided abdominal discomfort and was hospitalized for further treatment. Ureteral stent placed on 02/21/[address] Alex. Progress Notes: 02/23/18 12:33 CT of Abdomen/Pelvis reviewed by radiologist, shows: LOWER THORAX: Unremarkable. LIVER: Unremarkable. No gross lesion or ductal dilatation. GALLBLADDER AND BILE DUCTS: Cholelithiasis without CT evidence of acute cholecystitis. PANCREAS: Unremarkable. No gross lesion or ductal dilatation. SPLEEN: Unremarkable. ADRENALS: Unremarkable. No mass. KIDNEYS AND URETERS: Interval improvement in right hydronephrosis and hydroureter. The right kidney is less edematous. Position of the double J stent catheter(s): Satisfactory Small and solitary lower pole calculus nonobstructing less than 2 mm. Left kidney in ureter: Unremarkable. VASCULATURE: Unremarkable. No aortic aneurysm. BOWEL: Unremarkable. No obstruction. No gross mural thickening. APPENDIX: Unremarkable. Normal appendix. PERITONEUM: Unremarkable. No free fluid. No free air. LYMPH NODES: Unremarkable. No enlarged lymph nodes. BLADDER: Unremarkable. REPRODUCTIVE: Unremarkable. BONES: No acute fracture. OTHER FINDINGS: None. IMPRESSION: Satisfactory position of recently placed double-J catheter on the right. Substantial improvement in right hydronephrosis and hydroureter. Additional benign and/or incidental findings described above. 02/23/18 14:03 Dr. Alex contacted regarding pt presentation and lab resultation, and concurs with mgmt/disposition . Pt will be discharged harmeet pepe leavquin and additional antiobitcs with follow up with Dr. Alex tomorrow or saturday. - Lab Interpretations Lab Results: 02/23/18 11:54 02/23/18 11:54 Lab Results 02/23/18 12:31: Urine Color Dark red, Urine Appearance Bloody, Urine pH 5.5, Ur Specific [place] 1.020, Urine Protein >=300 H, Urine Glucose (UA) 100 H, Urine Ketones 15 H, Urine Blood Large H, Urine Nitrate Positive H, Urine Bilirubin Moderate H, Urine Urobilinogen 1.0 H, Ur Leukocyte Esterase Moderate H, Urine RBC Tntc, Urine WBC Tntc, Ur Epithelial Cells 3 - 4, Urine Bacteria Large 02/23/18 11:54: Sodium 145, Chloride 105, Potassium 3.9, Carbon Dioxide 28, Anion Gap 16, BUN 18, Creatinine 0.9, Est GFR ( Amer) > 60, Est GFR (Non- Af Amer) > 60, Random Glucose 235 H, Calcium 9.1, Total Bilirubin 0.3, AST 19, ALT 32, Alkaline Phosphatase 83, Total Protein 6.9, Albumin 3.8, Globulin 3.0, Albumin/Globulin Ratio 1.3 02/23/18 11:54: pO2 54, VBG pH 7.36, VBG pCO2 50.0, VBG HCO3 28.2 H, VBG Total CO2 29.7 H, VBG O2 Sat (Calc) 90.1 H, VBG Base Excess 1.9, VBG Potassium 3.8, Sodium 140.0, Chloride 107.0, Glucose 242 H, Lactate 1.0, FiO2 21.0, Venous Blood Potassium 3.8 02/23/18 11:54: PT 12.3, INR 1.07, APTT 28.8 02/23/18 11:54: WBC 11.1 H D, RBC 4.26, Hgb 11.7 L, Hct 36.0, MCV 84.5, MCH 27.5 , MCHC 32.5, RDW 13.2, Plt Count 387, MPV 11.1 H, Gran % 75.1 H, Lymph % (Auto) 17.1 L, [place] % (Auto) 6.8 H, Eos % (Auto) 0.8 L, Baso % (Auto) 0.2, Gran # 8.30 H, Lymph # (Auto) 1.9, [place] # (Auto) 0.8 H, Eos # (Auto) 0.1, Baso # (Auto) 0.02 - RAD Interpretation Radiology Orders: 02/23/18 10:45 CHEST PORTABLE [RAD] Stat 02/23/18 10:47 ABDOMEN & PELVIS [ABD & PELVIS W/O PO OR IV CONT] [CT] Stat - Medication Orders Current Medication Orders: Discontinued Medications Lactated Ringer's 1,000 ml/ IV (SUPPLIES) 1,000 mls @ 0 mls/hr IV ONCE ONE PRN Reason: 60 ML/KG/HR Stop: 02/23/18 10:46 Last Admin: 02/23/18 11:44 Dose: 60 mls/hr eMAR Start Stop Document 02/23/18 11:44 EQ (Rec: 02/23/18 11:45 EQ [id number]) Intravenous Solution Start Date 02/23/18 Start Time 11:44 Ketorolac Tromethamine (Toradol) 15 mg IVP STAT STA Stop: 02/23/18 13:26 Last Admin: 02/23/18 13:31 Dose: 15 mg MAR Pain Assessment Document 02/23/18 13:31 EQ (Rec: 02/23/18 13:31 EQ [id number]) Pain Reassessment Is this a pain reassessment? Yes Sleep Is patient sleeping during reassessment? No Presence of Pain Presence of Pain No IVP Administration Document 02/23/18 13:31 EQ (Rec: 02/23/18 13:31 EQ [id number]) Charges for Administration # of IVP Administrations 1 Levofloxacin/Dextrose (Levaquin 750mg) 750 mg IVPB ONCE ONE PRN Reason: Protocol Stop: 02/23/18 12:57 Last Admin: 02/23/18 13:29 Dose: 750 mg eMAR Start Stop Document 02/23/18 13:29 EQ (Rec: 02/23/18 13:29 EQ [id number]) Intravenous Solution Start Date 02/23/18 Start Time 13:29 Morphine Sulfate (Morphine) 2 mg IVP STAT STA Stop: 02/23/18 10:48 Last Admin: 02/23/18 11:44 Dose: 2 mg MAR Pain Assessment Document 02/23/18 11:44 EQ (Rec: 02/23/18 11:44 EQ [id number]) Pain Reassessment Is this a pain reassessment? No Sleep Is patient sleeping during reassessment? No Presence of Pain Presence of Pain Yes IVP Administration Document 02/23/18 11:44 EQ (Rec: 02/23/18 11:44 EQ [id number]) Charges for Administration # of IVP Administrations 1 - Scribe Statement The provider has reviewed the documentation as recorded by the Scribe Arnaud Worrellm. All medical record entries made by the Scribe were at my direction and personally dictated by me. I have reviewed the chart and agree that the record accurately reflects my personal performance of the history, physical exam, medical decision making, and the department course for this patient. I have also personally directed, reviewed, and agree with the discharge instructions and disposition. Disposition/Present on Arrival - Present on Arrival Any Indicators Present on Arrival: No History of DVT/PE: No History of Uncontrolled Diabetes: No Urinary Catheter: No History of Decub. Ulcer: No History Surgical Site Infection Following: None - Disposition Have Diagnosis and Disposition been Completed?: Yes Diagnosis: Urinary tract infection, Dehydration Disposition: HOME/ ROUTINE Disposition Time: 14:05 Patient Plan: Discharge Condition: FAIR Discharge Instructions (ExitCare): Urinary Tract Infection, Adult (DC), Dehydration, Adult (DC) Print Language: MOZAMBICAN Additional Instructions: Drink more water. Take the antibiotics faithfully . Please follow up with Dr. Alex in the next saturday by calling with appointment. Prescriptions: Ciprofloxacin HCl [Cipro] 500 mg PO BID #20 tablet Ibuprofen [Motrin Tab] 600 mg PO Q6 PRN #40 tab PRN Reason: Pain, Moderate (4-7) oxyCODONE/Acetaminophen [Percocet 5/325 mg Tab] 1 ea PO Q6 PRN #15 tab PRN Reason: Pain, Moderate (4-7) Referrals: Sadie Rios DO [Primary Care Provider] - Follow up with primary Saad Alex MD [Staff Provider] - Follow up with primary Forms: [facility] (Belgian)
[2018-02-23 12:00] LABS: VENOUS BLOOD GAS BASE EXCESS 1.9 mmol/L (0.0-2.0); VENOUS BLOOD GAS PO2 54 mm/Hg (30-55); VENOUS BLOOD PH 7.36 (7.32-7.43)
[2018-02-23 12:09] LABS: ALB/GLOB RATIO 1.3 (1.1-1.8); ALBUMIN 3.8 g/dL (3.0-4.8); ALT/SGPT 32 U/L (7-56); AST/SGOT 19 U/L (14-36); BASO # 0.02 K/mm3 (0.0-2.0); BASO % 0.2 % (0.0-3.0); BLOOD UREA NITROGEN 18 mg/dL (7-21); CALCIUM 9.1 mg/dL (8.4-10.5); EOS # 0.1 (0.0-0.7); EOS % 0.8 % (1.5-5.0); GFR AFRICAN-AMERICAN > 60; GFR NON-AFRICAN AMERICAN > 60; GRAN # 8.3 (1.4-6.5); GRAN % 75.1 % (50.0-68.0); HEMOGLOBIN 11.7 g/dL (12.0-16.0); LYMPH # 1.9 (1.2-3.4); LYMPH % 17.1 % (22.0-35.0); MEAN CELL VOLUME 84.5 fl (80.0-105.0); MEAN CORPUSCULAR HEMOGLOBIN 27.5 pg (25.0-35.0); MEAN CORPUSCULAR HGB CONC 32.5 g/dl (31.0-37.0); MEAN PLATELET VOLUME 11.1 fl (7.0-11.0); MONO # 0.8 (0.1-0.6); MONO % 6.8 % (1.0-6.0); RBC 4.26 10^6/uL (3.5-6.1); RED CELL DISTRIBUTION WIDTH 13.2 % (11.5-14.5); WHITE BLOOD COUNT 11.1 10^3/ul (4.5-11.0)
--- NOTE | 2018-02-23 12:14 | CT ---
PROCEDURE: CT Abdomen and Pelvis without intravenous contrast HISTORY: recent ureteroscopy , now w/ pain COMPARISON: 02/21/2018 CT abdomen and pelvis.Summary of findings on the comparison examination: Moderate right hydroureteronephrosis secondary to 4 mm proximal right ureteral calculus. Cholelithiasis TECHNIQUE: Unenhanced study. Neither oral nor intravenous contrast administered. Radiation dose: Total exam DLP = 998.09 mGy-cm. This CT exam was performed using one or more of the following dose reduction techniques: Automated exposure control, adjustment of the mA and/or kV according to patient size, and/or use of iterative reconstruction technique. FINDINGS: LOWER THORAX: Unremarkable. LIVER: Unremarkable. No gross lesion or ductal dilatation. GALLBLADDER AND BILE DUCTS: Cholelithiasis without CT evidence of acute cholecystitis. PANCREAS: Unremarkable. No gross lesion or ductal dilatation. SPLEEN: Unremarkable. ADRENALS: Unremarkable. No mass. KIDNEYS AND URETERS: Interval improvement in right hydronephrosis and hydroureter. The right kidney is less edematous. Position of the double J stent catheter(s): Satisfactory Small and solitary lower pole calculus nonobstructing less than 2 mm. Left kidney in ureter: Unremarkable. VASCULATURE: Unremarkable. No aortic aneurysm. BOWEL: Unremarkable. No obstruction. No gross mural thickening. APPENDIX: Unremarkable. Normal appendix. PERITONEUM: Unremarkable. No free fluid. No free air. LYMPH NODES: Unremarkable. No enlarged lymph nodes. BLADDER: Unremarkable. REPRODUCTIVE: Unremarkable. BONES: No acute fracture. OTHER FINDINGS: None. IMPRESSION: Satisfactory position of recently placed double-J catheter on the right. Substantial improvement in right hydronephrosis and hydroureter. Additional benign and/or incidental findings described above.
[2018-02-23 12:16] LABS: INR 1.07 (0.93-1.08); PARTIAL THROMBOPLASTIN TIME 28.8 Seconds (25.1-36.5); PROTHROMBIN TIME 12.3 SECONDS (9.4-12.5)
[2018-02-23 12:36] LABS: PH,URINE 5.5 (4.7-8.0); URINE BILIRUBIN MODERATE (NEGATIVE); URINE BLOOD LARGE (NEGATIVE); URINE GLUCOSE (UA) 100 mg/dL (NEGATIVE); URINE LEUKOCYTE ESTERASE MODERATE Leu/uL (NEGATIVE); URINE PROTEIN >=300 mg/dL (<30 mg/dL)
--- NOTE | 2018-02-23 12:36 | RAD ---
HISTORY: Sepsis Patient COMPARISON: 02/21/2018. FINDINGS: LUNGS: No active pulmonary disease. PLEURA: No significant pleural effusion identified, no pneumothorax apparent. CARDIOVASCULAR: No radiographic findings to suggest acute or significant cardiovascular disease. OSSEOUS STRUCTURES: No significant abnormalities. VISUALIZED UPPER ABDOMEN: Normal. OTHER FINDINGS: None. IMPRESSION: No active disease. No significant interval change compared to the prior examination(s).
[2018-02-23 12:44] LABS: URINE APPEARANCE BLOODY (CLEAR); URINE COLOR DARK RED (YELLOW)
[2018-02-23 12:50] LABS: URINE BACTERIA LARGE (NEG); URINE RBC TNTC /hpf (0-2); URINE WBC TNTC /hpf (0-6)
[2018-02-23] MEDS ORDERED: levoFLOXacin 750 mg in D5W 150 ML BAG IVPB ONE (12:56)
--- NOTE | 2018-02-23 15:25 | CARD ---
APPROVED REPORT EKG Measurement Heart [id number] <Conclusion> Normal sinus rhythm Normal ECG
[2018-02-23 15:40] VITALS: BP 158/81; PULSE 79
[2018-02-24] MEDS ORDERED: cefTRIAXone 1 gm 1 GM/100 ML BAG IVPB ONE (12:55)
== END 2018-02-23 15:39 | disposition home or self-care (01) ==
LOC: ED 10:12
DX: N39.0 Urinary tract infection, site not specified (principal); E86.0 Dehydration; I25.10 Atherosclerotic heart disease of native coronary artery without angina pectoris; I10 Essential (primary) hypertension; I69.951 Hemiplegia and hemiparesis following unspecified cerebrovascular disease affecting right dominant side; E11.9 Type 2 diabetes mellitus without complications; E78.5 Hyperlipidemia, unspecified; F17.210 Nicotine dependence, cigarettes, uncomplicated
CPT/HCPCS: 71045; 74176; 80053; 81001; 82803; 85025; 85610; 85730; 87040; 87086; 87181; 93005; 96374; 96375; 99283; J1885; J2270; J7120

== ENCOUNTER 2018-03-19 13:41 | Emergency (ER) | payer MEDICARE, MEDICAID ==
[2018-03-19 14:22] VITALS: BMI 29.0
[2018-03-19 14:27] VITALS: RESP 18
[2018-03-19 16:03] VITALS: O2SAT 96
--- NOTE | 2018-03-19 16:32 | ED PDOC ---
Arrival/HPI - General Chief Complaint: Female Genitourinary Time Seen by Provider: 03/19/18 14:27 Historian: Patient - History of Present Illness Narrative History of Present Illness (Text): 03/19/18 16:22 52yo female with pmhx of hypertension and Diabetes who present with complaint of dysuria, hematuria, urinary frequency/hesistancy, right flank pain, back pain x one week. She reports 3days history of subjective fever, nausea and vomiting. Notes she lasted vomited yesterday. She reports history of renal stone and UTI. Denies diarrhea, constipation, any other complaint. 0 Past Medical History - Provider Review Nursing Documentation Reviewed: Yes - Infectious Disease Hx of Infectious Diseases: None - Tetanus Immunization Tetanus Immunization: Unknown - Cardiac Hx Cardiac Disorders: Yes Hx Hypertension: Yes - Pulmonary Hx Respiratory Disorders: No - Neurological Hx Neurological Disorder: Yes HX Cerebrovascular Accident: Yes (x 4) Hx Transient Ischemic Attacks (TIA): Yes - HEENT Hx HEENT Disorder: No - Renal Hx Renal Disorder: No Hx Kidney Stones: Yes - Endocrine/Metabolic Hx Endocrine Disorders: Yes Hx Diabetes Mellitus Type 2: Yes (niddm) - Hematological/Oncological Hx Blood Disorders: No - Integumentary Hx Dermatological Disorder: No - Musculoskeletal/Rheumatological Hx Musculoskeletal Disorders: Yes Hx Arthritis: Yes - Gastrointestinal Hx Gastrointestinal Disorders: No - Genitourinary/Gynecological Hx Genitourinary Disorders: Yes Hx Incontinence: Yes (slight) - Psychiatric Hx Psychophysiologic Disorder: No Hx Substance Use: No - Surgical History Hx Section: Yes Hx Musculoskeletal Surgery: Yes (Right knee miniscal tear) Other/Comment: corn removed from right foot 2000. + ureteral stent for kidney stones - Anesthesia Hx Anesthesia: Yes Hx Anesthesia Reactions: No Hx Malignant Hyperthermia: No - Suicidal Assessment Feels Threatened In Home Enviroment: No Family/Social History - Physician Review Nursing Documentation Reviewed: Yes Family/Social History: Unknown Family HX Smoking Status: Light Smoker < 10 Cigarettes Daily Hx Alcohol Use: No Hx Substance Use: No Allergies/Home Meds Allergies/Adverse Reactions: Allergies Penicillins Allergy (Verified 02/20/18 21:41) ANAPHYLAXIS syncope Home Medications: Home Meds Medication Instructions Recorded Confirmed Enalapril [Vasotec] 10 mg PO BID 12/21/13 03/19/18 GlipiZIDE SR [Glucotrol XL] 2.5 mg PO DAILY 12/21/13 03/19/18 Insulin Detemir [Levemir] 15 units SC DAILY 03/19/18 03/19/18 Insulin Lispro [humALOG] 50 units SC DAILY 03/19/18 03/19/18 MetFORMIN [glucoPHAGE] 1 tab PO BID 03/19/18 03/19/18 Review of Systems - Physician Review All systems were reviewed & negative as marked: Yes - Review of Systems Constitutional: Fevers Eyes: Normal ENT: Normal Respiratory: Normal Cardiovascular: Normal Gastrointestinal: Abdominal Pain, Nausea, Vomiting. absent: Constipation, Diarrhea, Hematochezia Genitourinary Female: Normal Musculoskeletal: Normal, Back Pain Skin: Normal Neurological: Normal Endocrine: Normal Hemo/Lymphatic: Normal Psychiatric: Normal Physical Exam Vital Signs Reviewed: Yes Vital Signs Temp Pulse Resp BP Pulse Ox 03/19/18 18:25 99.2 F 89 18 145/80 96 03/19/18 16:00 98 H 18 148/79 96 03/19/18 14:26 99.8 F H 110 H 18 152/85 H 95 Temperature: Afebrile Blood Pressure: Normal Pulse: Tachycardic Respiratory Rate: Normal Appearance: Positive for: Well-Appearing, Non-Toxic, Comfortable Pain Distress: None Mental Status: Positive for: Alert and Oriented X 3 - Systems Exam Head: Present: Atraumatic, Normocephalic Pupils: Present: PERRL Extroacular Muscles: Present: EOMI Conjunctiva: Present: Normal Mouth: Present: Moist Mucous Membranes Neck: Present: Normal Range of Motion Respiratory/Chest: Present: Clear to Auscultation, Good Air Exchange. No: Respiratory Distress, Accessory Muscle Use Cardiovascular: Present: Regular Rate and Rhythm, Normal S1, S2. No: Murmurs Abdomen: Present: Tenderness (Right flank), Other (Soft). No: Distention, Peritoneal Signs, Rebound, Guarding, McBurney's Point Tender, Rovsing's Sign Present Back: No: CVA Tenderness Upper Extremity: Present: Normal Inspection. No: Cyanosis, Edema Lower Extremity: Present: Normal Inspection. No: Edema Neurological: Present: GCS=15, CN II-XII Intact, Speech Normal Skin: Present: Warm, Dry, Normal Color. No: Rashes Psychiatric: Present: Alert, Oriented x 3, Normal Insight, Normal Concentration Medical Decision Making ED Course and Treatment: 03/20/18 00:58 PT in Emergency department for stated history. she was hemodynamically stable. She had UTI and was treated with Macrobid. Abdominal/Pelvic CT IMPRESSION: In situ right ureteral stent remains in good position. Punctate calcification lower pole collecting system right kidney with a few punctate calcifications in the mid to lower pole collecting system left kidney. No evidence of hydronephrosis. Some vague infiltration changes seen in the mesentery about right renal pelvis and proximal right ureter. Hepatomegaly. Cholecystectomy. See above discussion for additional details and findings. Result was DW the pt and she was advised to drink plenty of fluid, take cranberry supplement and f/u with her PMD. - Lab Interpretations Lab Results: Lab Results 03/19/18 17:05: Urine Color Light brown, Urine Appearance Cloudy, Urine pH 6.0, Ur Specific Rush 1.025, Urine Protein >=300 H, Urine Glucose (UA) Negative, Urine Ketones Trace H, Urine Blood Large H, Urine Nitrate Negative, Urine Bilirubin Small H, Urine Urobilinogen 1.0 H, Ur Leukocyte Esterase Large H, Urine RBC Tntc, Urine WBC Tntc, Ur Epithelial Cells 10 - 12, Urine Bacteria Many - RAD Interpretation Radiology Orders: 03/19/18 16:32 ABD & PELVIS W/O PO OR IV CONT [CT] Stat - Medication Orders Current Medication Orders: Discontinued Medications Ibuprofen (Motrin Tab) 600 mg PO STAT STA Stop: 03/19/18 17:28 Last Admin: 03/19/18 18:18 Dose: 600 mg Nitrofurantoin Macrocrystals (Macrobid) 100 mg PO ONCE STA PRN Reason: Protocol Stop: 03/19/18 17:27 Last Admin: 03/19/18 18:17 Dose: 100 mg Phenazopyridine HCl (Pyridium) 200 mg PO STAT STA Stop: 03/19/18 17:28 Last Admin: 03/19/18 18:18 Dose: 200 mg Disposition/Present on Arrival - Present on Arrival Any Indicators Present on Arrival: No History of DVT/PE: No History of Uncontrolled Diabetes: No Urinary Catheter: No History of Decub. Ulcer: No History Surgical Site Infection Following: None - Disposition Have Diagnosis and Disposition been Completed?: Yes Diagnosis: UTI (urinary tract infection) Disposition: HOME/ ROUTINE Disposition Time: 17:20 Patient Plan: Discharge Condition: STABLE Discharge Instructions (ExitCare): Urinary Tract Infections in Adults Additional Instructions: Follow up with your Doctor Drink plenty of fluid and take Cranberry supplement Return to Emergency department for any new or worsening symptoms Prescriptions: Nitrofurantoin Macrocrystals [Macrobid] 100 mg PO BID #14 cap Phenazopyridine [Pyridium] 200 mg PO TID #6 tab Referrals: Rajendra Hercules MD [Staff Provider] - Follow up with primary Forms: [facility] ([place])
[2018-03-19 17:11] LABS: URINE BILIRUBIN SMALL (NEGATIVE); URINE BLOOD LARGE (NEGATIVE); URINE GLUCOSE (UA) NEGATIVE (NEGATIVE); URINE LEUKOCYTE ESTERASE LARGE Leu/uL (NEGATIVE); URINE PROTEIN >=300 mg/dL (<30 mg/dL)
[2018-03-19 17:21] LABS: URINE APPEARANCE CLOUDY (CLEAR); URINE COLOR LIGHT BROWN (YELLOW)
[2018-03-19 17:22] LABS: URINE BACTERIA MANY (NEG); URINE RBC TNTC /hpf (0-2); URINE WBC TNTC /hpf (0-6)
--- NOTE | 2018-03-19 17:54 | CT ---
PROCEDURE: CT abdomen pelvis 03/19/2018 HISTORY: Right-sided flank pain. COMPARISON: Comparison made with prior CT scan 02/23/2018. TECHNIQUE: Contiguous axial images of the abdomen and pelvis. . . Additional 2D sagittal and coronal reformats generated. . This CT exam was performed using one or more of the following dose reduction techniques: Automated exposure control, adjustment of the mA and/or kV according to patient size, and/or use of iterative reconstruction technique. Radiation dose: Total exam DLP = 90.17 mGy-cm. FINDINGS: LOWER THORAX: Unremarkable. LIVER: Normal/ borderline enlarged measuring nearly 19 cm in CC dimension. Dilatation. GALLBLADDER AND BILE DUCTS: Cholecystectomy. PANCREAS: Unremarkable. No mass. No ductal dilatation. SPLEEN: There are few tiny at punctate calcific like densities seen within the splenic parenchyma possibly vascular in origin which extend radially from the renal hilar region. ADRENALS: No adrenal lesions. KIDNEYS AND URETERS: Re- demonstrated is in situ right ureteral stent which remains in good position. . Right renal pelvis remains prominent. . Some vague infiltration changes seen about the right renal pelvis and proximal right ureter/right renal pelvis. . Punctate calcification right lower pole renal collecting system. . One or 2 tiny/punctate calcification lower pole collecting system left kidney also present. Mid-lower pole collecting system left kidney. BLADDER: Urinary bladder is incompletely distended which presumably in part accounts for thick-walled appearance. Rule out cystitis. REPRODUCTIVE: Uterus unremarkable. Very tiny on bilateral adnexal calcifications are felt to be present. Questionable tiny left adnexal cyst. APPENDIX: Normal-appearing appendix BOWEL: Evaluation of the bowel is limited due to the lack of oral contrast material. The stomach is incompletely distended which in part accounts for thick-walled appearance. Visualized loops of small bowel exhibit normal contour and caliber. No evidence of acute mechanical small bowel obstruction. No evidence of mural wall thickening of the colon. PERITONEUM: Unremarkable. No fluid collection. No free air. LYMPH NODES: Unremarkable. No enlarged lymph nodes. VASCULATURE: Unremarkable. No aortic aneurysm. BONES: No fracture or destructive lesion. OTHER FINDINGS: None. IMPRESSION: In situ right ureteral stent remains in good position. Punctate calcification lower pole collecting system right kidney with a few punctate calcifications in the mid to lower pole collecting system left kidney. No evidence of hydronephrosis. Some vague infiltration changes seen in the mesentery about right renal pelvis and proximal right ureter. Hepatomegaly. Cholecystectomy. See above discussion for additional details and findings.
[2018-03-19 18:35] VITALS: BP 145/80; PULSE 89; TEMP 99.2
== END 2018-03-19 18:25 | disposition home or self-care (01) ==
LOC: ED 13:41
DX: N39.0 Urinary tract infection, site not specified (principal); I10 Essential (primary) hypertension; E11.9 Type 2 diabetes mellitus without complications; Z86.73 Personal history of transient ischemic attack (TIA), and cerebral infarction without residual deficits; F17.210 Nicotine dependence, cigarettes, uncomplicated

== ENCOUNTER 2018-05-26 06:43 | Day surgery (SDC) | payer MEDICARE, MEDICAID ==
[2018-05-22 08:23] VITALS: BMI 29.4
[2018-05-26] MEDS ORDERED: Midazolam 2 MG/2 ML VIAL ONE (08:52)
[2018-05-26] MEDS ORDERED: Propofol 10 mg/ml Inj (20 ML) ONE (08:52)
[2018-05-26] MEDS ORDERED: Lidocaine PF 2% (5 ml) Inj (For Cardiac Arrhy) ONE (08:53)
[2018-05-26] MEDS ORDERED: Iohexol 240 (50 ml) UR ONE (09:18)
[2018-05-26] MEDS ORDERED: Ciprofloxacin 400mg/200ml D5W IVPB ONE (09:20)
[2018-05-26] MEDS ORDERED: Ciprofloxacin 400mg/200ml D5W 400 MG/200 ML BAG IVPB ONE (09:31)
[2018-05-26] MEDS ORDERED: HYDROmorphone 0.5 mg/0.5 ml ISec IVP PRN (09:59)
[2018-05-26] MEDS ORDERED: Lactated Ringer's 1,000 ML IV SCH (10:00)
[2018-05-26] MEDS ORDERED: HYDROmorphone 0.5 mg/0.5 ml ISec IVP ONE (10:07)
[2018-05-26 11:25] VITALS: RESP 20; TEMP 98
--- NOTE | 2018-05-26 11:29 | OP ---
Copied To: Saad Alex MD Attending MD: Saad Alex MD PROCEDURE DATE: 05/26/2018 PREOPERATIVE DIAGNOSIS: Right renal calculi. POSTOPERATIVE DIAGNOSIS: Right renal calculi. PROCEDURE: Cystoscopy, removal of right ureteral stent, and a right retrograde pyelogram. ATTENDING SURGEON: Dr. Saad Alex ANESTHESIA: General. SPECIMENS: There were none. DRAINS: There were none. COMPLICATIONS: There were none. OPERATIVE FINDINGS: After informed consent was obtained, the patient was taken to operating room, placed on operating table. Anesthesia was administered. The patient was then placed in dorsal lithotomy position and prepped and draped in usual sterile fashion. On fluoroscopy, a stent was noted in the right ureter, it was in good position. There were no calcific densities noted alongside the stent. At this point, the 21-[place] cystoscope was passed into the patient's bladder and a full survey inspection was performed. There was a stent noted exiting from the right ureteral orifice. It was moderately encrusted. The left ureteral orifice was visualized and appeared within normal limits. There was squamous metaplasia noted on the trigone. At this point, a grasping forceps was passed. The encrustations were broken off of the distal loop of the stent which was then grasped and withdrawn through the urethral meatus. On fluoroscopy, the upper limb was noted to uncoil easily. The stent was then grasped at the urethral meatus and removed in its entirety with no difficulty. There were no encrustations noted on the proximal limb. At this point, the cystoscope was repassed, the debris which had been cleared from the stent was irrigated out of the bladder. A 5-[place] catheter was introduced through the cystoscope and then guided into the right ureteral orifice. When inside the orifice, contrast was then instilled into the system during real-time fluoroscopy. There were no obvious filling defects noted throughout the ureter which appeared to be of normal caliber. It appears to be an extrarenal pelvis. There was some fullness in the kidney but the calyces were sharp likely chronic. At this point, the open-ended ureteral catheter was withdrawn. On delayed fluoroscopic views, contrast was noted to be exiting from the kidney into the renal pelvis and down the ureter with no evidence of obstruction. There were no stones or other filling defects noted. After a few minutes of delay, the kidney was emptying well on cystoscopy, large amounts of contrast was noted to be expelled from the right ureteral orifice. At this point, the procedure was completed, the bladder was drained, and the cystoscope was removed. The patient received IV antibiotics prior to start of the procedure. The patient tolerated procedure well. She was returned to supine position and taken to the recovery room awake in a stable condition. Saad Alex MD
--- NOTE | 2018-05-26 12:37 | RAD ---
Date of service: 05/26/2018 PROCEDURE: Retrograde pyelogram HISTORY: STENT REMOVAL COMPARISON: TECHNIQUE: 60.8 seconds of fluoro time. Cumulative dose 22.44 mGy cumulative dose. Four images were obtained FINDINGS: The study shows removal of a right ureteral stent IMPRESSION: As above
[2018-05-26 12:43] VITALS: BP 128/70; PULSE 70; O2SAT 98
== END 2018-05-26 12:45 | disposition home or self-care (01) ==
LOC: SDS 06:43
PROVIDERS: ATTEND Urology
DX: N20.0 Calculus of kidney (principal)
CPT/HCPCS: 52310; 74420; 82948; J0744; J1170; J2250; J2405; J2704; J2765; J3010; J7120; Q9966